=== PATIENT | male | born 1970 | race Caucasian/White ===

== ENCOUNTER 2018-09-13 05:29 | Day surgery (SDC) | payer OTHER ==
[~2018-09-13] VITALS: Ht 193 cm; Wt 99.8 kg
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
[~2018-09-13 05:29] MED LIST: ASPIR 8181 MG PO; COREG25 MG PO; FISH OIL 1,001000 M2 PO; LISINOPRIL2.5 MG PO; NORCO 5-325 TA1 EACH PO; TRICOR145 MG PO; VITAMIN B-121000 MCG PO
== END 2018-09-13 16:15 | disposition home or self-care (01) ==
LOC: OR 05:29 → TBA 05:29 → OR 09:32
DX: S42.032A Displaced fracture of lateral end of left clavicle, initial encounter for closed fracture (principal); I10 Essential (primary) hypertension; I42.9 Cardiomyopathy, unspecified; E78.1 Pure hyperglyceridemia; F17.220 Nicotine dependence, chewing tobacco, uncomplicated; Z79.82 Long term (current) use of aspirin; Z95.810 Presence of automatic (implantable) cardiac defibrillator; Z79.899 Other long term (current) drug therapy; Z98.890 Other specified postprocedural states; Z90.49 Acquired absence of other specified parts of digestive tract; Z79.891 Long term (current) use of opiate analgesic; X58.XXXA Exposure to other specified factors, initial encounter; Y93.89 Activity, other specified; Y92.89 Other specified places as the place of occurrence of the external cause; Y99.8 Other external cause status
CPT/HCPCS: 50010; 50101; 50386; 50417; 50733; 51320; 52001; 52282; 54118; 55430; 56526; 56528; 57006; 62110; 62900; 64039; 70005